=== PATIENT | female | born 1960 | race Caucasian/White ===

== ENCOUNTER 2018-11-07 10:58 | Emergency (ER) | payer MEDICARE, OTHER ==
[~2018-11-07] VITALS: Ht 149.9 cm; Wt 85.3 kg
[~2018-11-07 10:58] MED LIST: ACET325 PO; AMLO5 PO; ASPI81CH PO; AZAT50 PO; CALCAVITD PO; CARV25 PO; CLON.1 PO; CYCL10 PO; DICL75ER PO; DIPH50 PO; LEFL20 PO; LOSARTAN POTASS50 MG PO; METO25ER PO; METO50 PO; METTREX2.5 PO; NYST100SU; OMEP40CA12 PO; PRAV20 PO; PRED10 PO; PRED5 PO; PROM25S PR; RXSULTRIDS PO; ZZCYCL50 PO; [UNRECOGNIZED DRUG - OTHER]
[2018-11-07 12:17] LABS: BASOPHILS ABSOLUTE AUTO 0.01 K/mm3 (0.00-0.23); BASOPHILS PERCENT AUTO 0 % (0-2); EOSINOPHILS ABSOLUTE AUTO 0.01 K/mm3 (0.00-0.68); EOSINOPHILS PERCENT AUTO 0 % (0-6); Hemoglobin 13.3 g/dL (11.5-16.0); IMMATURE GRAN ABSOLUTE AUTO 0.02 K/mm3 (0.00-0.10); IMMATURE GRAN PERCENT AUTO 0 % (0-1); LYMPHOCYTES ABSOLUTE AUTO 0.76 K/mm3 (0.84-5.20); LYMPHOCYTES PERCENT AUTO 12 % (21-46); MONOCYTES PERCENT AUTO 9 % (4-13); Mean Corpuscular HGB 31.1 pg (26.0-34.0); Mean Corpuscular HGB Conc 32.4 g/dL (31.5-36.5); Mean Corpuscular Volume 96 fL (80-100); Mean Platelet Volume 12.4 fL (9.1-12.4); NEUTROPHILS PERCENT AUTO 78 % (41-73); Platelet Count 231 K/mm3 (150-400); RDW Standard Deviation 45.4 fL (35.1-46.3); Red Blood Cell Count 4.27 M/mm3 (3.80-5.20)
[2018-11-07 12:38] LABS: Albumin, Blood 2.6 g/dL (3.4-5.0); Albumin/Globulin Ratio 0.5 (0.8-1.8); Bilirubin, Total 0.6 mg/dL (0.1-1.0); Bun/Creatinine Ratio 18.3 (12.0-20.0); Calcium, Blood 8.8 mg/dL (8.5-10.1); Creatinine, Blood 1.15 mg/dL (0.40-1.00); Free Thyroxine 1.54 ng/dL (0.70-1.60); Globulin, Blood 4.8 g/dL (2.2-4.0); Magnesium, Blood 1.8 mg/dL (1.6-2.4); Potassium, Blood 3.4 mmol/L (3.5-5.5); Total Protein, Blood 7.4 g/dL (6.4-8.2)
[2018-11-07 12:42] LABS: Thyroid Stimulating Hormone 1.28 uIU/mL (0.360-4.800)
== END 2018-11-07 14:05 | disposition home or self-care (01) ==
LOC: ER 10:58
PROVIDERS: Emergency Medicine
DX: E87.6 Hypokalemia (principal); F43.9 Reaction to severe stress, unspecified; Z88.8 Allergy status to other drugs, medicaments and biological substances; Z88.5 Allergy status to narcotic agent; Z79.899 Other long term (current) drug therapy; Z79.82 Long term (current) use of aspirin; I12.9 Hypertensive chronic kidney disease with stage 1 through stage 4 chronic kidney disease, or unspecified chronic kidney disease; N18.9 Chronic kidney disease, unspecified; Z86.73 Personal history of transient ischemic attack (TIA), and cerebral infarction without residual deficits
CPT/HCPCS: 36415; 71046; 80053; 83735; 84439; 84443; 85025; 93005; 93010; 99284-25

== ENCOUNTER → 2021-07-13 | Outpatient (CLI) | payer OTHER | END | disposition home or self-care (01) | LOC: LAB SHORT 12:06 → LAB 12:06 | DX: N30.00 Acute cystitis without hematuria (principal) | CPT/HCPCS: 87077; 87086; 87186 ==

== ENCOUNTER → 2023-01-30 | Outpatient (CLI) | payer OTHER | LOC: LAB SHORT 09:40 → LAB 09:40 | DX: N39.0 Urinary tract infection, site not specified (principal) | CPT/HCPCS: 87086 ==

== ENCOUNTER → 2023-11-02 | Outpatient (CLI) | payer OTHER ==
[2023-11-02 11:43] LABS: BASOPHILS ABSOLUTE AUTO 0.04 K/mm3 (0.00-0.23); BASOPHILS PERCENT AUTO 1 % (0-2); EOSINOPHILS ABSOLUTE AUTO 0.19 K/mm3 (0.00-0.68); EOSINOPHILS PERCENT AUTO 3 % (0-6); Hematocrit 47.7 % (33.0-51.0); Hemoglobin 15.9 g/dL (11.5-16.0); IMMATURE GRAN ABSOLUTE AUTO 0.01 K/mm3 (0.00-0.10); IMMATURE GRAN PERCENT AUTO 0 % (0-1); LYMPHOCYTES ABSOLUTE AUTO 1.51 K/mm3 (0.84-5.20); LYMPHOCYTES PERCENT AUTO 21 % (21-46); MONOCYTES ABSOLUTE AUTO 0.47 K/mm3 (0.16-1.47); MONOCYTES PERCENT AUTO 7 % (4-13); Mean Corpuscular HGB Conc 33.3 g/dL (31.5-36.5); Mean Corpuscular Volume 93 fL (80-100); Mean Platelet Volume 11.6 fL (9.1-12.4); NEUTROPHILS ABSOLUTE AUTO 4.87 K/mm3 (1.96-9.15); NEUTROPHILS PERCENT AUTO 69 % (41-73); Platelet Count 202 K/mm3 (150-400); RDW Coefficient Variation 12.4 % (11.7-14.2); RDW Standard Deviation 42.7 fL (35.1-46.3); Red Blood Cell Count 5.13 M/mm3 (3.80-5.20); White Blood Cell Count 7.09 K/mm3 (4.00-11.30)
[2023-11-02 11:48] LABS: Albumin, Blood 3.7 g/dL (3.4-5.0); Bilirubin, Total 0.6 mg/dL (0.1-1.0); Bun/Creatinine Ratio 17.1 (12.0-20.0); Calcium, Blood 9.1 mg/dL (8.5-10.1); Creatinine, Blood 1.05 mg/dL (0.40-1.00); Globulin, Blood 3.8 g/dL (2.2-4.0); Total Protein, Blood 7.5 g/dL (6.4-8.2)
== END | disposition home or self-care (01) ==
LOC: LAB 10:36 → LAB SHORT 10:36
PROVIDERS: Internal Medicine Rheumatology
DX: M06.00 Rheumatoid arthritis without rheumatoid factor, unspecified site (principal)
CPT/HCPCS: 80053; 85025; 85651

== ENCOUNTER 2025-02-03 12:15 | Inpatient (IN) | payer OTHER ==
[~2025-02-03] VITALS: Ht 149.9 cm; Wt 82.1 kg
[2025-02-03 12:37] LABS: BASOPHILS ABSOLUTE AUTO 0.05 K/mm3 (0.00-0.23); BASOPHILS PERCENT AUTO 1 % (0-2); EOSINOPHILS ABSOLUTE AUTO 0.23 K/mm3 (0.00-0.68); EOSINOPHILS PERCENT AUTO 3 % (0-6); Hematocrit 45.2 % (33.0-51.0); Hemoglobin 15.0 g/dL (11.5-16.0); IMMATURE GRAN ABSOLUTE AUTO 0.02 K/mm3 (0.00-0.10); IMMATURE GRAN PERCENT AUTO 0 % (0-1); LYMPHOCYTES ABSOLUTE AUTO 2.04 K/mm3 (0.84-5.20); LYMPHOCYTES PERCENT AUTO 25 % (21-46); MONOCYTES ABSOLUTE AUTO 0.44 K/mm3 (0.16-1.47); MONOCYTES PERCENT AUTO 5 % (4-13); Mean Corpuscular HGB Conc 33.2 g/dL (31.5-36.5); Mean Corpuscular Volume 94 fL (80-100); NEUTROPHILS ABSOLUTE AUTO 5.37 K/mm3 (1.96-9.15); NEUTROPHILS PERCENT AUTO 66 % (41-73); NRBC ABSOLUTE 0.00 K/mm3 (0.00-0.02); NRBC Auto 0.0 /100 WBC (0.0-0.2); Platelet Count 232 K/mm3 (150-400); RDW Coefficient Variation 13.1 % (11.7-14.2); RDW Standard Deviation 45.1 fL (35.1-46.3)
[2025-02-03 13:01] LABS: Alanine Aminotransfer (ALT/SGP 23.0 U/L (12-78); Albumin, Blood 3.5 g/dL (3.4-5.0); Albumin/Globulin Ratio 0.9 (0.8-1.8); Anion Gap 10.0 mmol/L (3-11); Aspartate Aminotrans (AST/SGOT 18.0 U/L (12-37); Bilirubin, Total 0.7 mg/dL (0.1-1.0); Blood Urea Nitrogen 17.0 mg/dL (8-24); CO2, Blood 23.0 mmol/L (21-32); Calcium, Blood 8.6 mg/dL (8.5-10.1); Chloride, Blood 111.0 mmol/L (98-108); Creatinine, Blood 1.09 mg/dL (0.40-1.00); Globulin, Blood 4.0 g/dL (2.2-4.0); Glucose, Blood 107.0 mg/dL (70-99); Magnesium, Blood 2.1 mg/dL (1.6-2.4); Potassium, Blood 3.7 mmol/L (3.5-5.5); Sodium, Blood 140.0 mmol/L (136-145); Total Protein, Blood 7.5 g/dL (6.4-8.2)
[2025-02-03] MEDS ORDERED: Ipratropium/Albuterol SulF 2.5-0.5MG/3 ML Amp INH ONE (13:25)
[2025-02-03] MEDS ORDERED: Furosemide 10 MG / ML 2ML Vial IV ONE (15:20)
[2025-02-03 15:21] LABS: Source, Urine Clean Catch
[2025-02-03 15:38] LABS: Bilirubin, Urine Neg (Neg); Glucose Qualitative, Urine Neg (Neg); Ketones, Urine Neg (Neg); Leukocyte Esterase, Urine 1+ (Neg); Protein, Urine Neg (Neg); Specific Gravity, Urine 1.010 (1.003-1.022); Urobilinogen, Urine NORM (Normal)
[2025-02-03] MEDS ORDERED: FURO80 PO (15:47)
[2025-02-03 16:06] LABS: Color, Urine Pale Yellow (P-Yellow)
[2025-02-03 16:07] LABS: Red Blood Cells, Urine 0-2 /hpf (0-2)
[2025-02-03] MEDS ORDERED: FLU VACC TS2025-26(6MOS UP)/PF 45 MCG/0.5 ML SYRINGE IM SCH (16:20)
[2025-02-03] MEDS ORDERED: CefTRIAXone Sodium 1,000 MG in NS 50 ML IV ONE (17:35)
[2025-02-03 17:47] VITALS: BP 145/82
[2025-02-03] MEDS ORDERED: KLOR-CON 1010 ME9 PO (17:56)
[2025-02-03] MEDS ORDERED: FOSAMAX70 MG PO (17:57)
[2025-02-03 18:06] LABS: Influenza A/2009-H1 Not Detected (NOT DETECT); SARS-Cov-2 (COVID-19), BioFire Not Detected (NOT DETECT)
--- NOTE | 2025-02-03 18:49 | NUR ---
ADMIT TO PCU: PATIENT ALERT AND ORIENTED. STOOD AND TRANSFER TO PCU BED WITH SBA. DENIES DIZZINESS. TELE SHOWING BRADYCARDIA WITH 2ND DEGREE TYPE 2 HEART BLOCK. PATIENT NONSYMPTOMATIC AT THIS TIME. BLOOD PRESSURE STABLE, SEE CHARTED VITALS. DENIES CHEST PAIN/PRESSURE/PALPIATIONS. ON ROOM AIR, LUNG SOUNDS CLEAR WITH BILATERAL CRACKLES HEARD IN BASES. SOB WITH EXCERTION. BOWEL TONES PRESENT. DENIES ABDOMINAL PAIN/NAUSEA. UP TO BATHROOM WITH SBA AND SUPERVISION DUE TO BRADYCARDIA. SKIN C/D/I. MED REC COMPLETED. PATIENT DENIES TAKING ANY BETA BLOCKERS FOR "YEARS". SON AT BEDSIDE. CALL LIGHT IN REACH. DENIES NEEDS AT THIS TIME.
[2025-02-03 21:00] VITALS: BP 117/59
[2025-02-04] VITALS (7 sets, daily range): BP systolic 102–143; BP diastolic 60–89
[2025-02-04 04:12] LABS: BASOPHILS ABSOLUTE AUTO 0.05 K/mm3 (0.00-0.23); BASOPHILS PERCENT AUTO 1 % (0-2); EOSINOPHILS ABSOLUTE AUTO 0.17 K/mm3 (0.00-0.68); EOSINOPHILS PERCENT AUTO 2 % (0-6); Hematocrit 40.4 % (33.0-51.0); Hemoglobin 13.4 g/dL (11.5-16.0); IMMATURE GRAN ABSOLUTE AUTO 0.02 K/mm3 (0.00-0.10); IMMATURE GRAN PERCENT AUTO 0 % (0-1); LYMPHOCYTES ABSOLUTE AUTO 2.05 K/mm3 (0.84-5.20); LYMPHOCYTES PERCENT AUTO 23 % (21-46); MONOCYTES ABSOLUTE AUTO 0.63 K/mm3 (0.16-1.47); MONOCYTES PERCENT AUTO 7 % (4-13); Mean Corpuscular HGB Conc 33.2 g/dL (31.5-36.5); Mean Corpuscular Volume 93 fL (80-100); NEUTROPHILS ABSOLUTE AUTO 5.88 K/mm3 (1.96-9.15); NEUTROPHILS PERCENT AUTO 67 % (41-73); NRBC ABSOLUTE 0.00 K/mm3 (0.00-0.02); NRBC Auto 0.0 /100 WBC (0.0-0.2); Platelet Count 208 K/mm3 (150-400); RDW Coefficient Variation 13.3 % (11.7-14.2); RDW Standard Deviation 45.5 fL (35.1-46.3)
[2025-02-04 04:44] LABS: Anion Gap 11.0 mmol/L (3-11); Blood Urea Nitrogen 16.0 mg/dL (8-24); CO2, Blood 24.0 mmol/L (21-32); Calcium, Blood 8.3 mg/dL (8.5-10.1); Chloride, Blood 106.0 mmol/L (98-108); Creatinine, Blood 1.09 mg/dL (0.40-1.00); Glucose, Blood 96.0 mg/dL (70-99); Potassium, Blood 3.2 mmol/L (3.5-5.5); Sodium, Blood 138.0 mmol/L (136-145)
--- NOTE | 2025-02-04 06:34 | NUR ---
PT STABLE THROUGHOUT SHIFT. PT REMAINS BRADYCARDIC BUT ASYMPTOMATIC. PT WAS ON ROOM AIR WHILE AWAKE BUT DID REQUIRE SUPPLEMENTAL O2 WHILE SLEEPING TO MAINTAIN SATS ABOVE 92%. PT WAS SBA/INDEPENDENT TO BATHROOM AND DID HAVE GOOD URINARY OUTPUT, DIURESING WELL. VITAL SIGNS OTHERWISE WNL. POTASSIUM NOTED TO BE LOW THIS AM AND SUPPLEMENTATION WAS ORDERED.
[2025-02-04] MEDS ORDERED: Enoxaparin 40 MG/0.4 ML SYR SC SCH (09:00)
[2025-02-04 16:31] LABS: Magnesium, Blood 1.9 mg/dL (1.6-2.4); Potassium, Blood 4.6 mmol/L (3.5-5.5)
--- NOTE | 2025-02-04 17:13 | NUR ---
SHIFT SUMMARY PT IS A&O X4, ABLE TO EXPRESS NEEDS, AND INDEPENDENT TO TRANSFER IN ROOM. SHE WAS TITRATED FROM 1L O2 TO RA AT BEGINNING OF SHIFT AND HAS MAINTAINED SATURATIONS > 93% SINCE THEN. PREVIOUS RN STATED AT SHIFT REPORT THAT THE O2 WAS ONLY REQUIRED FOR SLEEP DUE TO DESATTING, NO ISSUES WHILE AWAKE. PT DENIES SOB OR DYSPNEA. PT HAS BRADYCARDIA WITH 1ST DEGREE HEART BLOCK. HR HAS MAINTAINED 40s T/O SHIFT, PT ASYMPTOMATIC. BPs ARE STABLE. FAMILY HAS BEEN AT BEDSIDE AND UPDATED ON CARE. ECHO COMPLETED THIS SHIFT. DR. ORTA ROUNDED AND EDUCATED PT AND DOCK OR PIER LABORER ABOUT ZIOPATCH FOR 2 WEEKS ON DISCHARGE. SEE NOTES FOR UPDATES.
[2025-02-04] MEDS ORDERED: CefTRIAXone Sodium 1,000 MG in NS 100 ML IV SCH (18:00)
[2025-02-05 03:23] VITALS: BP 116/60
[2025-02-05 03:49] LABS: BASOPHILS ABSOLUTE AUTO 0.06 K/mm3 (0.00-0.23); BASOPHILS PERCENT AUTO 1 % (0-2); EOSINOPHILS ABSOLUTE AUTO 0.28 K/mm3 (0.00-0.68); EOSINOPHILS PERCENT AUTO 3 % (0-6); Hematocrit 42.3 % (33.0-51.0); Hemoglobin 14.0 g/dL (11.5-16.0); IMMATURE GRAN ABSOLUTE AUTO 0.02 K/mm3 (0.00-0.10); IMMATURE GRAN PERCENT AUTO 0 % (0-1); LYMPHOCYTES ABSOLUTE AUTO 2.05 K/mm3 (0.84-5.20); LYMPHOCYTES PERCENT AUTO 23 % (21-46); MONOCYTES ABSOLUTE AUTO 0.70 K/mm3 (0.16-1.47); MONOCYTES PERCENT AUTO 8 % (4-13); Mean Corpuscular HGB Conc 33.1 g/dL (31.5-36.5); Mean Corpuscular Volume 94 fL (80-100); NEUTROPHILS ABSOLUTE AUTO 5.68 K/mm3 (1.96-9.15); NEUTROPHILS PERCENT AUTO 65 % (41-73); NRBC ABSOLUTE 0.00 K/mm3 (0.00-0.02); NRBC Auto 0.0 /100 WBC (0.0-0.2); Platelet Count 197 K/mm3 (150-400); RDW Coefficient Variation 13.2 % (11.7-14.2); RDW Standard Deviation 45.8 fL (35.1-46.3)
[2025-02-05 04:22] LABS: Anion Gap 9.0 mmol/L (3-11); Blood Urea Nitrogen 22.0 mg/dL (8-24); CO2, Blood 26.0 mmol/L (21-32); Calcium, Blood 9.6 mg/dL (8.5-10.1); Chloride, Blood 105.0 mmol/L (98-108); Creatinine, Blood 1.25 mg/dL (0.40-1.00); Glucose, Blood 105.0 mg/dL (70-99); Magnesium, Blood 1.9 mg/dL (1.6-2.4); Potassium, Blood 3.9 mmol/L (3.5-5.5); Sodium, Blood 136.0 mmol/L (136-145)
--- NOTE | 2025-02-05 04:57 | NUR ---
SHIFT SUMMARY: PATIENT IS A&OX4. SHE IS INDEP. IN THE ROOM. WHILE AWAKE PATIENT IS ON ROOM AIR WITH >90% SPO2, BUT WHEN SLEEPING PATIENTS SPO2 WOULD DECREASE TO THE 80'S, SO 2L OXYGEN VIA NC WAS PLACED AND SINCE HAS BEEN >90% SPO2. PATIENT DENIES SHORTNESS OF BREATH. [employer] [facility] REPORTS PATIENTS RHYTHM BRADYCARDIA WITH 2ND DEGREE HEART BLOCK TYPE 1 WITH RATE IN THE 40'S BPM. PATIENT CONTINUES TO BE ASYMPTOMATIC THROUGHOUT SHIFT OF THIS RATE/RHYTHM. BP'S STABLE. ECHO RESULTS ARE COMPLETED - PATIENT IS WANTING TO KNOW THE RESULTS OF THE ECHO AND THE PLAN OF CARE TODAY SINCE IT WAS NOT DONE YESTERDAY. PATIENT IS ABLE TO MAKE NEEDS KNOWN AND CALLS APPROPRIATELY. PATIENT IS CURRENTLY LAYING IN BED WITH CALL LIGHT IN REACH.
[2025-02-05 08:07] VITALS: BP 117/57
[2025-02-05 12:13] VITALS: BP 133/61
[2025-02-05 15:51] VITALS: BP 121/64
--- NOTE | 2025-02-05 17:23 | NUR ---
PT IS A&Ox4 AND ABLE TO MAKE NEED KNOWN. SHE IS ON RA W/O2 SATS > 92%. SHE IS INDEPENDENT FOR AMBULATION. NEW IV PLACED TO THE RFA AND OLD ONE REMOVED. PT SITTING IN RECLINER IN ROOM EATING DINNER. NO NEEDS OR CONCERNS NOTED @ THIS TIME. CALL LIGHT AND PERSONAL BELONGINGS IN REACH.
[2025-02-05 18:11] VITALS: BP 121/64
--- NOTE | 2025-02-05 18:27 | NUR ---
REPORT CALLED TO CAROL ARENAS @ [facility]. TRANSPORT SET UP. PT GIVEN INFO ON ROOM NUMBER, ACCEPTING DOCTOR, AND HOSPITAL. SHE WAS ALSO NOTIFIED OF ESTIMATED TRANPORT P/U TIME.
[2025-02-06 15:41] LABS: LYME VLSE1/PEPC10 ABS, ELISA 0.69 IV (<=0.90)
== END 2025-02-05 19:10 | disposition short-term general hospital (02) | DRG 308 ==
LOC: ER 12:15 → PCU 12:16
PROVIDERS: Student in an Organized Health Care Education/Training Program; ADMIT Hospitalist
DX: I44.2 Atrioventricular block, complete (principal); I50.31 Acute diastolic (congestive) heart failure; I13.0 Hypertensive heart and chronic kidney disease with heart failure and stage 1 through stage 4 chronic kidney disease, or unspecified chronic kidney disease; N39.0 Urinary tract infection, site not specified; N18.30 Chronic kidney disease, stage 3 unspecified; E78.5 Hyperlipidemia, unspecified; E87.5 Hyperkalemia; M81.0 Age-related osteoporosis without current pathological fracture; R79.1 Abnormal coagulation profile; M06.9 Rheumatoid arthritis, unspecified; R09.02 Hypoxemia; I27.20 Pulmonary hypertension, unspecified; I45.10 Unspecified right bundle-branch block; I07.1 Rheumatic tricuspid insufficiency; Z86.73 Personal history of transient ischemic attack (TIA), and cerebral infarction without residual deficits; Z88.8 Allergy status to other drugs, medicaments and biological substances; Z88.5 Allergy status to narcotic agent; Z79.82 Long term (current) use of aspirin; Z79.69 Long term (current) use of other immunomodulators and immunosuppressants
CPT/HCPCS: 0202U; 36415; 71046; 71260; 80048; 80053; 81001; 83735; 83880; 84132; 84443; 84484; 85025; 85379; 86618; 87077; 87086; 87186; 93005; 93010; 93306; 94762; 96365; 96372; 96375; 96376; 99284-25; A9270; G0378; J0696; J1650; J1938; Q9967